=== PATIENT | female | born 1965 | race Caucasian/White ===

== ENCOUNTER 2016-07-22 20:41 | Emergency (ER) | payer MEDICARE, MEDICAID ==
[~2016-07-22] VITALS: Ht 162.6 cm; Wt 81.8 kg
[~2016-07-22 20:41] MED LIST: ATIVAN0.5 MG PO; ATIVAN1 MG OR; ATORVASTATI80 MG/TAB PO; BACTRIM DS1 TAB PO; BUSPIRONE15 M1 OR; BUSPIRONE7.5 MG OR; CITALOPRAM10 MG PO; CITALOPRAM20 MG PO; COREG3.125 MG PO; DITROPAN OR; EQ IBUPROFEN200 MG OR; FLEXERIL OR; GABAPENTIN300 MG PO; HYDROCHLOROT12.5 MG PO; HYDROXYZ HCL10 MG PO; ISOSORBIDE MONO30 MG PO; KLONOPIN0.5 MG OR; LAMOTRIGINE150 MG PO; LEXAPRO10 MG OR; LISINOPRIL10 MG PO; LISINOPRIL2.5 MG PO; NAPROSYN500 MG OR; NEURONTIN600 MG OR; NEURONTIN800 MG OR; NITROSTAT0.4 MG SL; OXYBUTYNIN5 M1 PO; PLAVIX75 MG PO; PREDNISONE1 MG PO; PROVENTIL HFA IN; PROZAC10 MG PO; QVAR40 MCG IN; RISPERDAL M0.5 MG PO; RISPERDAL1 MG PO; SEROQUEL100 MG OR; TOPAMAX50 MG PO; TRAMADOL HCL50 MG OR; TYLENOL500 MG OR; VICODIN OR; WELLBUTRIN SR150 MG PO; [UNRECOGNIZED DRUG - OTHER] TD; [UNRECOGNIZED DRUG - REMARK]
[2016-07-22 21:03] VITALS: BP 101/59
[2016-07-22] MEDS ORDERED: ALPRAZOLAM0.5 MG PO (21:27)
[2016-07-22] MEDS ORDERED: AMOX/K CLAV875 M1 PO (21:28)
[2016-07-22] MEDS ORDERED: ULTRAM50 M1 PO (23:33)
== END 2016-07-23 00:10 | disposition home or self-care (01) ==
LOC: ED 20:41
DX: M25.562 Pain in left knee (principal); M79.672 Pain in left foot; J45.909 Unspecified asthma, uncomplicated; F41.9 Anxiety disorder, unspecified; F31.9 Bipolar disorder, unspecified; J44.9 Chronic obstructive pulmonary disease, unspecified; I10 Essential (primary) hypertension; E78.5 Hyperlipidemia, unspecified; F17.210 Nicotine dependence, cigarettes, uncomplicated; Z95.5 Presence of coronary angioplasty implant and graft
CPT/HCPCS: L1830

== ENCOUNTER 2016-08-10 14:54 | Emergency (ER) | payer MEDICARE, MEDICAID ==
[~2016-08-10] VITALS: Ht 162.6 cm; Wt 85.0 kg
[~2016-08-10 14:54] MED LIST changes: +ALPRAZOLAM0.5 MG PO; +AMOX/K CLAV875 M1 PO; +ULTRAM50 M1 PO
[2016-08-10] MEDS ORDERED: MOTRIN800 MG PO (15:27)
[2016-08-10] MEDS ORDERED: AUGMENTIN875TAB PO (15:27)
[2016-08-10 16:19] VITALS: BP 110/72
== END 2016-08-10 16:27 | disposition home or self-care (01) ==
LOC: ED 14:54
PROC: 0HQFXZZ Repair Right Hand Skin, External Approach (ICD-10-PCS; principal; 2016-08-10)
DX: S61.451A Open bite of right hand, initial encounter (principal); W54.0XXA Bitten by dog, initial encounter; Y92.009 Unspecified place in unspecified non-institutional (private) residence as the place of occurrence of the external cause

== ENCOUNTER 2016-11-11 21:05 | Emergency (ER) | payer MEDICARE, MEDICAID ==
[~2016-11-11] VITALS: Ht 162.6 cm; Wt 80.8 kg
[~2016-11-11 21:05] MED LIST changes: +AUGMENTIN875TAB PO; +MOTRIN800 MG PO
[2016-11-11 22:03] LABS: URINE BLOOD DIPSTICK NEGATIVE (NEGATIVE); URINE CLARITY SLIGHT CLOUDY; URINE COLOR YELLOW; URINE GLUCOSE - DIPSTICK NEGATIVE (NEGATIVE); URINE KETONE TRACE mg/dL (NEGATIVE); URINE LEUK ESTERASE TRACE (NEGATIVE); URINE NITRITE - DIPSTICK NEGATIVE (Negative); URINE PROTEIN - DIPSTICK TRACE mg/dL (NEG-TRACE); URINE SPECIFIC GRAVITY >=1.030
[2016-11-11 22:04] LABS: URINE BILIRUBIN - DIPSTICK NEGATIVE (NEGATIVE)
[2016-11-11 22:07] LABS: BARBITURATES NEGATIVE (NEGATIVE); COCAINE NEGATIVE (NEGATIVE); METHADONE NEGATIVE (NEGATIVE); TETRAHYDROCANNABIONOL POSITIVE (NEGATIVE); TRICYLIC ANTIDEPRESSANTS NEGATIVE (NEGATIVE)
[2016-11-11 22:07] LABS: HEMATOCRIT 39.9 % (37.0-47.0); HEMOGLOBIN 13.5 g/dl (12.0-16.0); IMMATURE GRANULOCYTES 0.2 % (0.0-1.0); MEAN CELL VOLUME 89.5 fL CALC (80.0-100.0); MEAN CORPUSCULAR HGB 30.3 pG CALC (26.0-32.0); MEAN CORPUSCULAR HGB CONC 33.8 g/L CALC (32.0-36.0); NEUT# 6.18 thou/uL (2.00-7.15); RED BLOOD COUNT 4.46 mill/uL (4.20-5.60); RED CELL DISTRI WIDTH 13.2 % (11.5-15.5)
[2016-11-11 22:08] LABS: OXCYCODONE NEGATIVE (NEGATIVE)
[2016-11-11 22:28] LABS: ALBUMIN 4.1 g/dL (3.2-5.0); BILIRUBIN, TOTAL 0.5 mg/dL (0.0-1.4); CALCIUM 8.6 mg/dL (8.4-10.2); CREATININE 2.2 mg/dL (0.5-1.0); POTASSIUM 3.3 mmol/l (3.5-5.1); TOTAL PROTEIN 6.8 g/dL (6.3-8.2)
[2016-11-11] MEDS ORDERED: LAMICTAL XR300 MG PO (23:07)
[2016-11-11] MEDS ORDERED: ASPIRIN81 MG PO (23:08)
[2016-11-11 23:54] VITALS: BP 95/54
== END 2016-11-11 23:52 | disposition home or self-care (01) ==
LOC: ED 21:05
PROVIDERS: Emergency Medicine
DX: M50.30 Other cervical disc degeneration, unspecified cervical region (principal); F41.9 Anxiety disorder, unspecified; F31.9 Bipolar disorder, unspecified; J44.9 Chronic obstructive pulmonary disease, unspecified; I25.10 Atherosclerotic heart disease of native coronary artery without angina pectoris; I10 Essential (primary) hypertension; E78.5 Hyperlipidemia, unspecified; F17.210 Nicotine dependence, cigarettes, uncomplicated; N28.9 Disorder of kidney and ureter, unspecified; F19.90 Other psychoactive substance use, unspecified, uncomplicated; Y04.0XXA Assault by unarmed brawl or fight, initial encounter; Y92.009 Unspecified place in unspecified non-institutional (private) residence as the place of occurrence of the external cause; Z95.5 Presence of coronary angioplasty implant and graft

== ENCOUNTER 2017-05-16 12:23 | Emergency (ER) | payer MEDICARE, MEDICAID ==
[~2017-05-16] VITALS: Ht 162.6 cm; Wt 80.0 kg
[~2017-05-16 12:23] MED LIST changes: +ASPIRIN81 MG PO; +LAMICTAL XR300 MG PO
[2017-05-16] MEDS ORDERED: LORTAB 5/3255 MG PO (13:05)
[2017-05-16 13:23] VITALS: BP 108/55
== END 2017-05-16 13:25 | disposition home or self-care (01) ==
LOC: ED 12:23
DX: S81.011A Laceration without foreign body, right knee, initial encounter (principal); S80.212A Abrasion, left knee, initial encounter; I10 Essential (primary) hypertension; F43.10 Post-traumatic stress disorder, unspecified; F32.9 Major depressive disorder, single episode, unspecified; F41.9 Anxiety disorder, unspecified; F17.210 Nicotine dependence, cigarettes, uncomplicated; W18.39XA Other fall on same level, initial encounter; Y93.K1 Activity, walking an animal; Y92.410 Unspecified street and highway as the place of occurrence of the external cause

== ENCOUNTER 2019-11-08 15:00 | Emergency (ER) | payer MEDICARE, MEDICAID ==
[~2019-11-08] VITALS: Ht 162.6 cm; Wt 77.3 kg
[~2019-11-08 15:00] MED LIST changes: +LORTAB 5/3255 MG PO
[2019-11-08 16:02] VITALS: BP 144/88
[2019-11-08 17:04] LABS: HEMATOCRIT 36.9 % (37.0-47.0); HEMOGLOBIN 11.8 g/dl (12.0-16.0); IMMATURE GRANULOCYTES 0.3 % (0.0-5.0); MEAN CELL VOLUME 87.9 fL CALC (80.0-100.0); MEAN CORPUSCULAR HGB 28.1 pG CALC (26.0-32.0); NEUT# 6.49 thou/uL (2.00-7.15); RED BLOOD COUNT 4.2 mill/uL (4.20-5.60); RED CELL DISTRI WIDTH 13.5 % (11.5-15.5)
[2019-11-08 17:20] LABS: ALBUMIN 4.1 g/dL (3.2-5.0); ANION GAP 8 (6-22 (CALC)); BILIRUBIN, TOTAL 0.5 mg/dL (0.0-1.4); BUN 8 mg/dL (7-17); BUN/CREATININE RATIO 12 (12-20 (CALC)); CARBON DIOXIDE 30 mmol/l (22-30); CHLORIDE 101 mmol/l (95-108); CREATININE 0.7 mg/dL (0.5-1.0); ETHYL ALCOHOL 0 mg/dl (0-30); GFR > 60 ML/MIN (>=60 (CALC)); GFR FOR AFR.AMER. > 60 ML/MIN (>=60 (CALC)); MAGNESIUM 1.9 mg/dL (1.6-2.3); POTASSIUM 3.8 mmol/l (3.5-5.1); SGOT/AST 26 u/l (14-36); SODIUM 135 mmol/l (137-146); TOTAL PROTEIN 7.1 g/dL (6.3-8.2)
[2019-11-08 17:22] LABS: ALKALINE PHOSPHATASE 124 u/l (38-126)
[2019-11-08 17:49] LABS: TSH, 3RD GENERATION 1.86 uIU/mL (0.47 - 4.68)
[2019-11-08 18:21] LABS: URINE BILIRUBIN - DIPSTICK NEGATIVE (NEGATIVE); URINE BLOOD DIPSTICK NEGATIVE (NEGATIVE); URINE COLOR YELLOW; URINE GLUCOSE - DIPSTICK NEGATIVE (NEGATIVE); URINE KETONE NEGATIVE (NEGATIVE); URINE LEUK ESTERASE NEGATIVE (NEGATIVE); URINE NITRITE - DIPSTICK NEGATIVE (Negative); URINE PH 5.5 (4.5-8.0); URINE PROTEIN - DIPSTICK NEGATIVE (NEG-TRACE); URINE SPECIFIC GRAVITY >=1.030; URINE UROBILINOGEN - DIPSTICK 0.2 E.U./dL (0.2)
[2019-11-08] MEDS ORDERED: [UNRECOGNIZED DRUG - OTHER] EX (18:47)
== END 2019-11-08 18:46 | disposition home or self-care (01) ==
LOC: ED 15:00
PROVIDERS: Family Medicine
DX: R20.2 Paresthesia of skin (principal); I10 Essential (primary) hypertension; F17.210 Nicotine dependence, cigarettes, uncomplicated

== ENCOUNTER 2022-06-24 01:25 | Emergency (ER) | payer MEDICARE, MEDICAID ==
[~2022-06-24] VITALS: Ht 162.6 cm; Wt 60.0 kg
[2022-06-24] VITALS (14 sets, daily range): BP systolic 71–101; BP diastolic 41–62
[~2022-06-24 01:25] MED LIST changes: +[UNRECOGNIZED DRUG - OTHER] EX
[2022-06-24 01:56] LABS: BASO% 0.3 % (0-3); EOS% 2.4 % (0-8); HEMATOCRIT 39.4 % (37.0-47.0); HEMOGLOBIN 13.1 g/dl (12.0-16.0); IMMATURE GRANULOCYTES 0.2 % (0.0-5.0); LYMPH% 18.6 % (15-41); MEAN CELL VOLUME 88.9 fL CALC (80.0-100.0); MEAN CORPUSCULAR HGB 29.6 pG CALC (26.0-32.0); MEAN CORPUSCULAR HGB CONC 33.2 g/dL CAL (32.0-36.0); MONO% 7.1 % (2-13); NEUT# 9.07 thou/uL (2.00-7.15); NEUT% 71.4 % (42-76); RED BLOOD COUNT 4.43 mill/uL (4.20-5.60); RED CELL DISTRI WIDTH 13.3 % (11.5-15.5)
[2022-06-24 02:08] LABS: ALBUMIN 4.1 g/dL (3.2-5.0); ALKALINE PHOSPHATASE 92 u/l (38-126); ANION GAP 13 (6-22 (CALC)); BILIRUBIN, TOTAL 0.3 mg/dL (0.02-1.3); BUN 15 mg/dL (7-17); BUN/CREATININE RATIO 15 (12-20 (CALC)); CARBON DIOXIDE 25 mmol/l (22-30); CHLORIDE 104 mmol/l (95-108); ETHYL ALCOHOL 0 mg/dl (0-30); GFR FOR AFR.AMER. > 60 ML/MIN (>=60 (CALC)); GFR OTHER RACES 58 ML/MIN (>=60 (CALC)); POTASSIUM 4.1 mmol/l (3.5-5.1); SGOT/AST 35 u/l (14-36); SODIUM 138 mmol/l (137-146); TOTAL PROTEIN 7.1 g/dL (6.3-8.2)
[2022-06-24 02:34] LABS: URINE BLOOD DIPSTICK NEGATIVE (NEGATIVE); URINE COLOR YELLOW; URINE GLUCOSE - DIPSTICK NEGATIVE (NEGATIVE); URINE KETONE TRACE mg/dL (NEGATIVE); URINE LEUK ESTERASE NEGATIVE (NEGATIVE); URINE PH 5.5 (4.5-8.0); URINE PROTEIN - DIPSTICK 100 mg/dL (NEG-TRACE); URINE SPECIFIC GRAVITY >=1.030; URINE UROBILINOGEN - DIPSTICK 0.2 E.U./dL (0.2)
[2022-06-24 02:36] LABS: URINE BILIRUBIN - DIPSTICK SMALL (NEGATIVE)
[2022-06-24 02:37] LABS: URINE NITRITE - DIPSTICK NEGATIVE (Negative)
[2022-06-24 02:51] LABS: URINE CALCIUM OXALATE CRYSTALS FEW lpf; URINE SQUAMOUS EPITHELIAL CELL FEW EPI/hpf (0-FEW)
[2022-06-24] MEDS ORDERED: BACTRIM DS1 TAB PO (03:14)
[2022-06-24] MEDS ORDERED: GABAPENTIN100 MG PO (03:17)
[2022-06-24] MEDS ORDERED: CARVEDILOL3.125 MG PO (03:18)
[2022-06-24] MEDS ORDERED: VAZALORE81 MG PO (03:19)
[2022-06-24] MEDS ORDERED: ISOSORBID1 XX (03:21)
[2022-06-24] MEDS ORDERED: LIPITOR20 M1 PO (03:21)
[2022-06-24] MEDS ORDERED: HYDROCODONE BIT1 TA3 (03:22)
[2022-06-24] MEDS ORDERED: VISTARIL25 MG PO (03:23)
[2022-06-24] MEDS ORDERED: XANAX0.25 MG PO (03:24)
== END 2022-06-24 07:00 | disposition home or self-care (01) ==
LOC: ED 01:25
PROVIDERS: Family Medicine
DX: R53.1 Weakness (principal); T36.8X5A Adverse effect of other systemic antibiotics, initial encounter; T42.4X5A Adverse effect of benzodiazepines, initial encounter; T43.595A Adverse effect of other antipsychotics and neuroleptics, initial encounter; T42.6X5A Adverse effect of other antiepileptic and sedative-hypnotic drugs, initial encounter; T40.2X5A Adverse effect of other opioids, initial encounter; S00.83XA Contusion of other part of head, initial encounter; F15.10 Other stimulant abuse, uncomplicated; I10 Essential (primary) hypertension; F41.9 Anxiety disorder, unspecified; F32.A Depression, unspecified; F17.200 Nicotine dependence, unspecified, uncomplicated; W01.0XXA Fall on same level from slipping, tripping and stumbling without subsequent striking against object, initial encounter; Y92.008 Other place in unspecified non-institutional (private) residence as the place of occurrence of the external cause

== ENCOUNTER 2022-09-16 12:57 | Emergency (ER) | payer MEDICARE, MEDICAID ==
[2022-09-16] VITALS (12 sets, daily range): BP systolic 113–141; BP diastolic 57–83
[~2022-09-16] VITALS: Ht 162.6 cm; Wt 75.0 kg
[~2022-09-16 12:57] MED LIST changes: +CARVEDILOL3.125 MG PO; +GABAPENTIN100 MG PO; +HYDROCODONE BIT1 TA3; +ISOSORBID1 XX; +LIPITOR20 M1 PO; +VAZALORE81 MG PO; +VISTARIL25 MG PO; +XANAX0.25 MG PO
[2022-09-16] MEDS ORDERED: IBUPROFEN600 MG PO (16:46)
== END 2022-09-16 18:53 | disposition home or self-care (01) ==
LOC: ED 12:57 → ED-I 14:01 → ED 18:53
DX: S00.83XA Contusion of other part of head, initial encounter (principal); I10 Essential (primary) hypertension; F17.200 Nicotine dependence, unspecified, uncomplicated; F15.10 Other stimulant abuse, uncomplicated; F12.10 Cannabis abuse, uncomplicated; W19.XXXA Unspecified fall, initial encounter

== ENCOUNTER 2024-01-04 05:50 | Emergency (ER) | payer MEDICARE, MEDICAID ==
[~2024-01-04] VITALS: Ht 162.6 cm; Wt 61.0 kg
[~2024-01-04 05:50] MED LIST changes: +IBUPROFEN600 MG PO
[2024-01-04] MEDS ORDERED: LIDOcaine HCl 1% (Local Anesth.) 20 ML VIAL IJ ONE (06:15)
[2024-01-04] MEDS ORDERED: Diph, Acellular Pertussis, Tet 0.5 ML/VIAL (Tdap) SDV IM ONE (06:15)
[2024-01-04] MEDS ORDERED: SODIUM CHLORIDE 0.9% FOR IRRIGATION 250 ML BTL IR ONE (06:20)
[2024-01-04 07:11] VITALS: BP 154/117
== END 2024-01-04 07:20 | disposition home or self-care (01) ==
LOC: ED 05:50
PROC: 0HQFXZZ Repair Right Hand Skin, External Approach (ICD-10-PCS; principal; 2024-01-04)
DX: S61.250A Open bite of right index finger without damage to nail, initial encounter (principal); F41.9 Anxiety disorder, unspecified; F32.A Depression, unspecified; F17.200 Nicotine dependence, unspecified, uncomplicated; W54.0XXA Bitten by dog, initial encounter

== ENCOUNTER 2024-04-08 21:45 | Emergency (ER) | payer MEDICARE, MEDICAID | END 2024-04-08 22:00 | disposition left against medical advice (07) | LOC: ED 21:45 → LWOBS 21:54 | DX: Z53.21 Procedure and treatment not carried out due to patient leaving prior to being seen by health care provider (principal) ==